=== PATIENT | male | born 1965 | race Caucasian/White ===

== ENCOUNTER 2017-11-17 17:37 | Emergency (ER) | payer MEDICAID ==
--- NOTE | 2017-11-17 17:51 | ER Report ---
History and Physical Time Seen By MD: 17:48 Hx. of Stated Complaint: pt presents with hxof pancreatitis, has been vomiting since last night, with pain luq HPI/ROS CHIEF COMPLAINT: Nausea, vomiting and diarrhea HISTORY OF PRESENT ILLNESS: This is a 52-year-old male presents to the emergency department with his son for nausea, vomiting and diarrhea. Patient states that he has a known history of pancreatitis non-alcoholic, was last seen and evaluated in [place], treated and cleared to "take a bus ride to [place]". Idris walker is now living with his son in [place]. Patient states that he woke up today with a sudden onset of nausea and vomiting and diarrhea. Patient states this is the typical course for his pancreatitis. Patient denies fevers or chills, no rashes, no headaches no chest pain or shortness of breath. REVIEW OF SYSTEMS: Constitutional: No fever, no chills. Eyes: No discharge. ENT: No sore throat. Cardiovascular: No chest pain, no palpitations. Respiratory: No cough, no shortness of breath. Gastrointestinal: As above. Genitourinary: No hematuria. Musculoskeletal: No back pain. Skin: No rashes. Neurological: No headache. Allergies: Coded Allergies: No Known Drug Allergies (Unverified , 11/17/17) Home Meds Active Scripts Promethazine Hcl (PROMETHAZINE HCL) 25 Mg Tablet, 25 MG PO Q8H, #12 TAB 0 Refills Prov:PHILLIP GUADARRAMAP- 11/17/17 Ondansetron (ZOFRAN ODT) 4 Mg Tab.rapdis, 4 MG PO Q6H PRN for NAUSEA/VOMITING, # 20 TAB.CINDY 0 Refills Prov:PHILLIP GUADARRAMA [facility]- 11/17/17 Hydrocodone Bit/Acetaminophen (HYDROCODON-ACETAMINOPHEN 5-325) 1 Each Tablet, 1 EACH PO Q4-6H PRN for PAIN, #8 TAB Prov:PHILLIP GUADARRAMA [facility]- 11/17/17 Reported Medications Polyethylene Glycol 3350 (MIRALAX) 17 Gm Powd.pack, 17 GM PO, PKT 11/17/17 Docusate Sodium (COLACE) 100 Mg Capsule, 100 MG PO, CAPSULE 11/17/17 Amlodipine Besylate (AMLODIPINE BESYLATE) 10 Mg Tablet, 1 TAB PO QDAY, TAB 11/17/17 Clonidine Hcl (CLONIDINE HCL) 0.1 Mg Tablet, 0.1 MG PO QDAY, TAB 11/17/17 Acetaminophen (Acetaminophen) 325 Mg Capsule 11/17/17 Tamsulosin Hcl (TAMSULOSIN HCL) 0.4 Mg Cap.er.24h, 0.4 MG PO, CAP 11/17/17 Insulin Aspart (NOVOLOG) 100 Unit/1 Ml Cartridge, 100 UNIT SQ 11/17/17 Past Medical/Surgical History The patient has a past medical and surgical history of malnutrition, depression, uncontrolled type II diabetes, nicotine dependence, essential hypertension, diabetic polyneuropathy, BPH, cannabis dependence, opiate dependence, insomnia, pancreatitis, cataracts, cellulitis and abscess of the left foot and toe, depression syncope Reviewed Nurses Notes: Yes Constitutional Vital Sign - Last 24 Hours 11/17/17 11/17/17 11/17/17 11/17/17 17:42 17:44 18:24 18:37 Temp 97.8 Pulse 90 82 Resp 22 B/P (MAP) 238/145 (176) 238/145 227/138 (167) Pulse Ox 99 90 O2 Delivery Room Air 11/17/17 11/17/17 11/17/17 11/17/17 18:42 18:46 19:00 19:12 Pulse 82 92 B/P (MAP) 174/103 (126) 193/116 (141) Pulse Ox 92 92 11/17/17 11/17/17 11/17/17 11/17/17 19:17 19:30 19:47 20:00 Pulse 92 88 B/P (MAP) 185/116 (139) 189/129 (149) Pulse Ox 92 93 11/17/17 11/17/17 11/17/17 20:17 20:30 20:41 Pulse 87 88 Resp 16 B/P (MAP) 171/115 (133) 178/99 (125) Pulse Ox 95 92 O2 Delivery Room Air Physical Exam General Appearance: The patient is alert, has no immediate need for airway protection and no signs of toxicity. Eyes: Pupils equal and round no pallor or injection. ENT, Mouth: Mucous membranes are dry, poor dentition and multiple dental caries. Respiratory: There are no retractions, lungs are clear to auscultation. Cardiovascular: Regular rate and rhythm, no murmurs, clicks or rubs. Gastrointestinal: Abdomen is soft with diffuse tenderness throughout, with increased tenderness to the epigastrium. No masses, bowel sounds normal. No heaves, pulsations or abdominal bruits. Neurological: Alert and oriented 4. Moving all extremities. Following all commands. No focal neuro deficits. Skin: Warm and dry, no rashes. Musculoskeletal: Neck is supple non tender. Extremities are nontender, nonswollen and have full range of motion. DIFFERENTIAL DIAGNOSIS: After history and physical exam differential diagnosis was considered for abdominal pain including but not limited to appendicitis, cholecystitis, pancreatitis, gastritis and urinary tract infection. Medical Decision Making Data Points Result Diagram: 11/17/17 1754 11/17/17 1754 Laboratory Hematology Test 11/17/17 17:54 11/17/17 18:19 Red Blood Count 4.78 M/uL (4.00-5.60) Mean Corpuscular Volume 86.9 fL (80.0-96.0) Mean Corpuscular Hemoglobin 30.5 pg (26.0-33.0) Mean Corpuscular Hemoglobin Concent 35.1 g/dL (32.0-36.0) Red Cell Distribution Width 13.7 % (11.5-14.5) Mean Platelet Volume 7.8 fL (7.2-11.1) Neutrophils (%) (Auto) 78.5 % (39.4-72.5) Lymphocytes (%) (Auto) 16.0 % (17.6-49.6) Monocytes (%) (Auto) 3.9 % (4.1-12.4) Eosinophils (%) (Auto) 0.4 % (0.4-6.7) Basophils (%) (Auto) 1.2 % (0.3-1.4) Nucleated RBC Relative Count (auto) 0.1 /100WBC Neutrophils # (Auto) 6.2 K/uL (2.0-7.4) Lymphocytes # (Auto) 1.3 K/uL (1.3-3.6) Monocytes # (Auto) 0.3 K/uL (0.3-1.0) Eosinophils # (Auto) 0.0 K/uL (0.0-0.5) Basophils # (Auto) 0.1 K/uL (0.0-0.1) Nucleated RBC Absolute Count (auto) 0.00 K/uL Sodium Level 136 mmol/L (137-145) Potassium Level 4.3 mmol/L (3.5-5.0) Chloride Level 99 mmol/L (98-107) Carbon Dioxide Level 23 mmol/L (22-30) Blood Urea Nitrogen 17 mg/dl (9-21) Creatinine 0.70 mg/dl (0.66-1.25) Glomerular Filtration Rate Calc > 60.0 Random Glucose 392 mg/dl (75-110) Calcium Level 9.5 mg/dl (8.4-10.2) Total Bilirubin 0.8 mg/dl (0.2-1.3) Aspartate Amino Transf (AST/SGOT) 27 U/L (0-35) Alanine Aminotransferase (ALT/SGPT) 23 U/L (0-56) Alkaline Phosphatase 115 U/L (0-126) Total Protein 8.8 g/dl (6.3-8.2) Albumin 4.5 g/dl (3.5-5.0) Lipase 306 U/L (23-300) Urine Color Straw Urine Clarity Clear Urine pH 6.0 pH (4.8-9.5) Urine Specific [place] 1.021 Urine Protein 500 mg/dL (NEGATIVE) Urine Glucose (UA) 500 mg/dL (NEGATIVE) Urine Ketones 20 mg/dL (NEGATIVE) Urine Blood Small (NEGATIVE) Urine Nitrite Negative (NEGATIVE) Urine Bilirubin Negative (NEGATIVE) Urine Urobilinogen Negative mg/dL (0.2-1.9) Urine Leukocyte Esterase Negative (NEGATIVE) Urine RBC 11 /HPF (0-2/HPF) Urine WBC 1 /HPF (0-5/HPF) Urine Squamous Epithelial Cells None /LPF (</=FEW) Urine Bacteria Negative /HPF (NONE-FEW) Urine Hyaline Casts Few /LPF (NONE-FEW) Urine Mucus None /HPF (NONE-FEW) Chemistry Test 11/17/17 17:54 11/17/17 18:19 White Blood Count 7.9 k/uL (4.5-11.0) Red Blood Count 4.78 M/uL (4.00-5.60) Hemoglobin 14.6 g/dL (14.0-18.0) Hematocrit 41.6 % (42.0-52.0) Mean Corpuscular Volume 86.9 fL (80.0-96.0) Mean Corpuscular Hemoglobin 30.5 pg (26.0-33.0) Mean Corpuscular Hemoglobin Concent 35.1 g/dL (32.0-36.0) Red Cell Distribution Width 13.7 % (11.5-14.5) Platelet Count 341 K/uL (150-450) Mean Platelet Volume 7.8 fL (7.2-11.1) Neutrophils (%) (Auto) 78.5 % (39.4-72.5) Lymphocytes (%) (Auto) 16.0 % (17.6-49.6) Monocytes (%) (Auto) 3.9 % (4.1-12.4) Eosinophils (%) (Auto) 0.4 % (0.4-6.7) Basophils (%) (Auto) 1.2 % (0.3-1.4) Nucleated RBC Relative Count (auto) 0.1 /100WBC Neutrophils # (Auto) 6.2 K/uL (2.0-7.4) Lymphocytes # (Auto) 1.3 K/uL (1.3-3.6) Monocytes # (Auto) 0.3 K/uL (0.3-1.0) Eosinophils # (Auto) 0.0 K/uL (0.0-0.5) Basophils # (Auto) 0.1 K/uL (0.0-0.1) Nucleated RBC Absolute Count (auto) 0.00 K/uL Glomerular Filtration Rate Calc > 60.0 Calcium Level 9.5 mg/dl (8.4-10.2) Total Bilirubin 0.8 mg/dl (0.2-1.3) Aspartate Amino Transf (AST/SGOT) 27 U/L (0-35) Alanine Aminotransferase (ALT/SGPT) 23 U/L (0-56) Alkaline Phosphatase 115 U/L (0-126) Total Protein 8.8 g/dl (6.3-8.2) Albumin 4.5 g/dl (3.5-5.0) Lipase 306 U/L (23-300) Urine Color Straw Urine Clarity Clear Urine pH 6.0 pH (4.8-9.5) Urine Specific [place] 1.021 Urine Protein 500 mg/dL (NEGATIVE) Urine Glucose (UA) 500 mg/dL (NEGATIVE) Urine Ketones 20 mg/dL (NEGATIVE) Urine Blood Small (NEGATIVE) Urine Nitrite Negative (NEGATIVE) Urine Bilirubin Negative (NEGATIVE) Urine Urobilinogen Negative mg/dL (0.2-1.9) Urine Leukocyte Esterase Negative (NEGATIVE) Urine RBC 11 /HPF (0-2/HPF) Urine WBC 1 /HPF (0-5/HPF) Urine Squamous Epithelial Cells None /LPF (</=FEW) Urine Bacteria Negative /HPF (NONE-FEW) Urine Hyaline Casts Few /LPF (NONE-FEW) Urine Mucus None /HPF (NONE-FEW) Urinalysis Test 11/17/17 18:19 Urine Color Straw Urine Clarity Clear Urine pH 6.0 pH (4.8-9.5) Urine Specific [place] 1.021 Urine Protein 500 mg/dL (NEGATIVE) Urine Glucose (UA) 500 mg/dL (NEGATIVE) Urine Ketones 20 mg/dL (NEGATIVE) Urine Blood Small (NEGATIVE) Urine Nitrite Negative (NEGATIVE) Urine Bilirubin Negative (NEGATIVE) Urine Urobilinogen Negative mg/dL (0.2-1.9) Urine Leukocyte Esterase Negative (NEGATIVE) Urine RBC 11 /HPF (0-2/HPF) Urine WBC 1 /HPF (0-5/HPF) Urine Squamous Epithelial Cells None /LPF (</=FEW) Urine Bacteria Negative /HPF (NONE-FEW) Urine Hyaline Casts Few /LPF (NONE-FEW) Urine Mucus None /HPF (NONE-FEW) EKG/Imaging EKG Interpretation 12 lead EKG: Time of EKG 1808. Rhythm: Normal sinus rhythm, ventricular rate 83 BPM. Council: normal QRS: normal ST segments: No ST depression or elevation identified. ED Course/Re-evaluation Clinical Indication for ER IV: Hydration, IV Access ED Course The patient was admitted to room. A history physical obtained. Differential diagnoses were considered. An IV was started. A CBC, CMP and lipase were obtained. CBC unremarkable. Chemistry showing blood glucose 392. Lipase 306. UA showing protein, glucose, ketones and blood. According to the patient's past laboratory studies this is a fairly consistent pattern with his poor nutrition and poor health.8 milligrams IV as Zofran, 50 g IV fentanyl, just prior to arrival O.5 milligrams IV Phenergan. Patient was also sent home with take home pack for Zofran, Phenergan and hydrocodone. Patient states he is feeling better after the medications pain has subsided. I did review the laboratory studies with the patient. Patient does have a known history of pancreatitis. I did consult with Dr. Murillo the hospitalist on-call he was willing to admit the p atient if the patient felt that he needed an admission but felt that if he could manage his recurrent pancreatitis at home and this may be a better option. I discussed this with the patient, the patient was willing to trial managing the pancreatitis at home with his son who is willing to help. The patient was given a prescription for Phenergan, Zofran and Lortab as well. Patient was instructed to try sips of fluids for the next 36 hours slowly progress into a clear liquid diet for the next 24-48 hours at which time if he is feeling better then he can slowly progress into a regular diet. Patient was in agreement with his clinic care. Patient has a long history of non-alcoholic pancreatitis. The patient and son were in agreement with this plan of care and discharged home. Decision to Disposition Date: Nov 17, 2017 Decision to Disposition Time: 20:07 Depart Departure Latest Vital Signs Vital Signs Date Time Temp Pulse Resp B/P (MAP) Pulse Ox O2 Delivery O2 Flow Rate FiO2 11/17/17 20:41 88 16 178/99 (125) 92 Room Air 11/17/17 17:44 97.8 Impression: Primary Impression: Pancreatitis Condition: Improved Disposition: HOME OR SELF-CARE New Scripts Promethazine Hcl (PROMETHAZINE HCL) 25 Mg Tablet 25 MG PO Q8H, #12 TAB 0 Refills Prov: PHILLIP GUADARRAMA RESIDENTIAL APPLIANCE REPAIR TECHNICIAN-BC 11/17/17 Ondansetron (ZOFRAN ODT) 4 Mg Tab.rapdis 4 MG PO Q6H PRN for NAUSEA/VOMITING, #20 TAB.CINDY 0 Refills Prov: PHILLIP GUADARRAMA [employer]IDENTIAL [employer]PLIANCE REPAIR TECHNICIAN-BC 11/17/17 Hydrocodone Bit/Acetaminophen (HYDROCODON-ACETAMINOPHEN 5-325) 1 Each Tablet 1 EACH PO Q4-6H PRN for PAIN, #8 TAB Prov: PHILLIP GUADARRAMA RESIDENTIAL APPLIANCE REPAIR TECHNICIAN-BC 11/17/17 Patient Instructions: Pancreatitis (ED) Additional Instructions: Start with sips of fluids for the next 3-6 hours then slowly progress if tolerating well. Then a clear liquid diet for the next 24-48 hours and progress into a regular diet slowly. Establish with your new primary care provider within one week for reevaluation. Take the Zofran, Phenergan and Lortab as needed for nausea, vomiting and pain. Return to the ED for any other concerns or worsening symptoms. Problem Qualifiers Primary Impression: Pancreatitis Chronicity: chronic Pancreatitis type: unspecified pancreatitis type Qualified Codes: K86.1 - Other chronic pancreatitis PHILLIP GUADARRAMA RESIDENTIAL APPLIANCE REPAIR TECHNICIAN-BC Nov 17, 2017 17:51
[2017-11-17] MEDS ORDERED: NS(*) 0.9% 1000 ML BAG 1,000 ML IV ONE (18:01)
[2017-11-17] MEDS ORDERED: fentaNYL CITR 100 MCG/2 ML AMP IVP ONE (18:05)
[2017-11-17] MEDS ORDERED: ONDANSETRON 4 MG/2 ML VIAL IVP ONE (18:05)
[2017-11-17 18:10] LABS: PLATELET COUNT, AUTOMATED 341 K/uL (150-450)
[2017-11-17] MEDS ORDERED: CLON-327 PO (18:18)
[2017-11-17] MEDS ORDERED: TAMS0.4C70 PO (18:18)
[2017-11-17] MEDS ORDERED: INSU100C14 SQ (18:18)
[2017-11-17] MEDS ORDERED: DOCU-416 PO (18:18)
[2017-11-17] MEDS ORDERED: ACET325C (18:18)
[2017-11-17] MEDS ORDERED: AMLO-99 PO (18:18)
[2017-11-17] MEDS ORDERED: POLY17PO25 PO (18:18)
--- NOTE | 2017-11-17 19:01 | EKG ---
FACILITY: [facility] [place] PATIENT NAME: BETY CHINCHILLA : [id number] MR: [id number] V: [id number] EXAM DATE: ORDERING PHYSICIAN: PHILLIP GUADARRAMA TECHNOLOGIST: [place] Test Reason : WEAK Blood Pressure : / mmHG Vent. Rate : 083 BPM Atrial Rate : 083 BPM P-R Int : 158 ms QRS Dur : 082 ms QT Int : 366 ms P-R-T Axes : 067 007 063 degrees QTc Int : 430 ms Normal sinus rhythm Normal ECG No previous ECGs available Confirmed by GISELA MAO ([id number]) on 11/18/2017 6:43:52 AM Referred By: PIHLLIP Confirmed By:GISELA MAO
[2017-11-17] MEDS ORDERED: PROMETHAZINE 25 MG/ML 1 ML AMP IVP ONE (19:55)
[2017-11-17] MEDS ORDERED: ONDANSETRON 4 MG ODT TH SL ONE (20:00)
[2017-11-17] MEDS ORDERED: PROMETHAZINE HCL 25 MG TAB TH 2 TAB/BOTTLE PO ONE (20:00)
[2017-11-17] MEDS ORDERED: ACET/HYDROC 5/325MG TH ER ONLY 2 TAB/BOTTLE PO ONE (20:00)
[2017-11-17] MEDS ORDERED: ONDA4TAB PO (20:11)
[2017-11-17] MEDS ORDERED: PROM-110 PO (20:11)
[2017-11-17] MEDS ORDERED: HYDR-385 PO (20:11)
[2017-11-17 20:41] VITALS: BP 178/99
== END 2017-11-17 20:46 | disposition home or self-care (01) ==
LOC: ER 19:54
DX: K86.1 Other chronic pancreatitis (principal)
CPT/HCPCS: 81001; 83690; 85025; 93005; 96361; 96374; 96375; 99284; J2405; J2550; J3010; J7030; S0119; 82040; 82247; 82310; 82374; 82435; 82565; 82947; 84075; 84132; 84155; 84295; 84450; 84460; 84520

== ENCOUNTER 2017-11-24 20:50 | Emergency (ER) | payer MEDICAID ==
[~2017-11-24 20:50] MED LIST: ACET325C; AMLO-99 PO; CLON-327 PO; DOCU-416 PO; HYDR-385 PO; INSU100C14 SQ; ONDA4TAB PO; POLY17PO25 PO; PROM-110 PO; TAMS0.4C70 PO
--- NOTE | 2017-11-24 20:53 | ER Report ---
History and Physical Time Seen By MD: 20:53 HPI/ROS CHIEF COMPLAINT: Syncope HISTORY OF PRESENT ILLNESS: 52-year-old male got up to go to the bathroom, had a syncopal episode in the bathroom. Patient fell striking his nose and face. He is complaining of neck pain. EMS put him in a cervical collar. Patient was seen here one week ago with recurrence of his pancreatitis. Patient just moved here to live with his son. Tonight. Patient got up to go to the bathroom and had a syncopal episode. He reports no diarrhea. He denies dysuria. He denies chest pain or shortness of breath. REVIEW OF SYSTEMS: Respiratory: No cough, no dyspnea. Cardiovascular: No chest pain, no palpitations. Gastrointestinal: As above Musculoskeletal: No back pain. Allergies: Coded Allergies: No Known Drug Allergies (Unverified , 11/24/17) Home Meds Active Scripts Promethazine Hcl (PROMETHAZINE HCL) 25 Mg Tablet, 25 MG PO Q8H, #12 TAB 0 Refills Prov:PHILLIP GUADARRAMAP-BC 11/17/17 Hydrocodone Bit/Acetaminophen (HYDROCODON-ACETAMINOPHEN 5-325) 1 Each Tablet, 1 EACH PO Q4-6H PRN for PAIN, #8 TAB Prov:PHILLIP GUADARRAMAP-BC 11/17/17 Discontinued Reported Medications Polyethylene Glycol 3350 (MIRALAX) 17 Gm Powd.pack, 17 GM PO, PKT 11/17/17 Docusate Sodium (COLACE) 100 Mg Capsule, 100 MG PO, CAPSULE 11/17/17 Amlodipine Besylate (AMLODIPINE BESYLATE) 10 Mg Tablet, 1 TAB PO QDAY, TAB 11/17/17 Clonidine Hcl (CLONIDINE HCL) 0.1 Mg Tablet, 0.1 MG PO QDAY, TAB 11/17/17 Acetaminophen (Acetaminophen) 325 Mg Capsule 11/17/17 Tamsulosin Hcl (TAMSULOSIN HCL) 0.4 Mg Cap.er.24h, 0.4 MG PO, CAP 11/17/17 Insulin Aspart (NOVOLOG) 100 Unit/1 Ml Cartridge, 100 UNIT SQ 11/17/17 Discontinued Scripts Ondansetron (ZOFRAN ODT) 4 Mg Tab.rapdis, 4 MG PO Q6H PRN for NAUSEA/VOMITING, #20 TAB.CINDY 0 Refills Prov:PHILLIP GUADARRAMA [employer]-BC 11/17/17 Reviewed Nurses Notes: Yes Old Medical Records Reviewed: Yes Hx Substance Use Disorder: No Hx Alcohol Use: No Constitutional Vital Sign - Last 24 Hours 11/24/17 11/24/17 11/24/17 11/24/17 20:53 20:53 21:05 21:20 Temp 98.6 Pulse 104 101 102 Resp 17 14 12 B/P (MAP) 180/114 180/114 (136) Pulse Ox 97 96 97 O2 Delivery Room Air 11/24/17 11/24/17 11/24/17 11/24/17 21:38 21:50 22:05 22:20 Pulse 100 103 101 B/P (MAP) 187/122 (143) Pulse Ox 96 97 96 11/24/17 11/24/17 11/24/17 11/24/17 22:35 22:40 22:55 23:06 Pulse 100 100 93 B/P (MAP) 143/103 (116) Pulse Ox 96 95 96 11/24/17 11/24/17 11/24/17 11/24/17 23:10 23:15 23:30 23:45 Pulse 91 99 97 96 Pulse Ox 95 97 96 95 11/25/17 11/25/17 11/25/17 11/25/17 00:00 00:21 00:30 00:45 Pulse 96 100 96 B/P (MAP) 176/110 (132) Pulse Ox 96 95 95 11/25/17 11/25/17 11/25/17 11/25/17 01:00 01:05 01:20 01:25 Pulse 96 99 97 B/P (MAP) 118/71 (87) Pulse Ox 93 93 96 96 11/25/17 11/25/17 11/25/17 11/25/17 01:40 01:55 02:00 02:13 Pulse 98 101 ??? B/P (MAP) ???/??? (1665) 189/110 (136) 11/25/17 11/25/17 11/25/17 11/25/17 02:30 03:00 03:30 03:40 Pulse 96 98 91 B/P (MAP) 165/106 (125) 137/94 (108) Pulse Ox 95 96 94 9/211/25/17 11/25/17 11/25/17 04:00 04:05 04:09 04:30 Pulse 101 ??? B/P (MAP) 178/120 (139) 198/123 (148) 166/100 (122) 176/103 (127) Pulse Ox 97 11/25/17 11/25/17 11/25/17 05:00 05:30 06:00 Pulse ??? 93 ??? B/P (MAP) 117/76 (90) 139/89 (106) 167/105 (125) Pulse Ox 94 Physical Exam General Appearance: The patient is alert, has no immediate need for airway protection and no current signs of toxicity./Pale appearing, skin warm and dry. Vital signs stable, afebrile, patient was notably hypotensive for EMS after vasovagal syncope HEENT: Pupils equal and round no injection. Oropharynx with dry mucous membranes, no erythema, TMs normal, there is a laceration over the bridge of the nose. Respiratory: Chest is non tender, lungs are clear to auscultation. Cardiac: regular rate and rhythm Gastrointestinal: Abdomen is soft and non tender, no masses, bowel sounds normal. Musculoskeletal: Neck: Neck is supple and non tender. Extremities have full range of motion and are non tender. Skin: No rashes or lesions. Neuro: Alert and oriented 3, cranial nerves II through XII intact motor 5/5 all groups, sensory intact to light touch 4, cerebellum grossly intact DIFFERENTIAL DIAGNOSIS: After history and physical exam differential diagnosis was considered for syncope including but not limited to vasovagal syncope, arrhythmia, dehydration, and blood loss. Additionally,abdominal pain including but not limited to appendicitis, cholecystitis, gastritis and urinary tract infection. Medical Decision Making Data Points Result Diagram: 11/24/17204911/24/172049 Laboratory Hematology Test 11/24/17 20:50 11/25/17 00:07 11/25/17 04:12 Red Blood Count 5.07 M/uL (4.00-5.60) Mean Corpuscular Volume 86.6 fL (80.0-96.0) Mean Corpuscular Hemoglobin 30.0 pg (26.0-33.0) Mean Corpuscular Hemoglobin Concent 34.6 g/dL (32.0-36.0) Red Cell Distribution Width 13.6 % (11.5-14.5) Mean Platelet Volume 8.3 fL (7.2-11.1) Neutrophils (%) (Auto) 52.7 % (39.4-72.5) Lymphocytes (%) (Auto) 35.1 % (17.6-49.6) Monocytes (%) (Auto) 10.8 % (4.1-12.4) Eosinophils (%) (Auto) 0.7 % (0.4-6.7) Basophils (%) (Auto) 0.7 % (0.3-1.4) Nucleated RBC Relative Count (auto) 0.0 /100WBC Neutrophils # (Auto) 4.4 K/uL (2.0-7.4) Lymphocytes # (Auto) 2.9 K/uL (1.3-3.6) Monocytes # (Auto) 0.9 K/uL (0.3-1.0) Eosinophils # (Auto) 0.1 K/uL (0.0-0.5) Basophils # (Auto) 0.1 K/uL (0.0-0.1) Nucleated RBC Absolute Count (auto) 0.00 K/uL Sodium Level 131 mmol/L (137-145) Potassium Level 4.2 mmol/L (3.5-5.0) Chloride Level 89 mmol/L (98-107) Carbon Dioxide Level 21 mmol/L (22-30) Blood Urea Nitrogen 37 mg/dl (9-21) Creatinine 1.00 mg/dl (0.66-1.25) Glomerular Filtration Rate Calc > 60.0 Random Glucose 278 mg/dl (75-110) Lactate 2.0 mmol/L (0.7-2.1) Calcium Level 9.0 mg/dl (8.4-10.2) Total Bilirubin 0.7 mg/dl (0.2-1.3) Aspartate Amino Transf (AST/SGOT) 15 U/L (0-35) Alanine Aminotransferase (ALT/SGPT) 14 U/L (0-56) Alkaline Phosphatase 67 U/L (0-126) Total Protein 6.9 g/dl (6.3-8.2) Albumin 3.6 g/dl (3.5-5.0) Amylase Level 56 U/L (0-110) Lipase 119 U/L (23-300) Serum Alcohol < 10 mg/dl Troponin I 0.031 ng/ml Urine Color Yellow Urine Clarity Clear Urine pH 5.0 pH (4.8-9.5) Urine Specific [place] 1.020 Urine Protein 500 mg/dL (NEGATIVE) Urine Glucose (UA) 500 mg/dL (NEGATIVE) Urine Ketones 80 mg/dL (NEGATIVE) Urine Blood Moderate (NEGATIVE) Urine Nitrite Negative (NEGATIVE) Urine Bilirubin Negative (NEGATIVE) Urine Urobilinogen Negative mg/dL (0.2-1.9) Urine Leukocyte Esterase Negative (NEGATIVE) Urine RBC 1 /HPF (0-2/HPF) Urine WBC <1 /HPF (0-5/HPF) Urine Squamous Epithelial Cells None /LPF (</=FEW) Urine Transitional Epithelial Cells Few /LPF (NONE-FEW) Urine Bacteria Negative /HPF (NONE-FEW) Urine Hyaline Casts Few /LPF (NONE-FEW) Urine Mucus None /HPF (NONE-FEW) Chemistry Test 11/24/17 20:50 11/25/17 00:07 11/25/17 04:12 White Blood Count 8.3 k/uL (4.5-11.0) Red Blood Count 5.07 M/uL (4.00-5.60) Hemoglobin 15.2 g/dL (14.0-18.0) Hematocrit 43.9 % (42.0-52.0) Mean Corpuscular Volume 86.6 fL (80.0-96.0) Mean Corpuscular Hemoglobin 30.0 pg (26.0-33.0) Mean Corpuscular Hemoglobin Concent 34.6 g/dL (32.0-36.0) Red Cell Distribution Width 13.6 % (11.5-14.5) Platelet Count 384 K/uL (150-450) Mean Platelet Volume 8.3 fL (7.2-11.1) Neutrophils (%) (Auto) 52.7 % (39.4-72.5) Lymphocytes (%) (Auto) 35.1 % (17.6-49.6) Monocytes (%) (Auto) 10.8 % (4.1-12.4) Eosinophils (%) (Auto) 0.7 % (0.4-6.7) Basophils (%) (Auto) 0.7 % (0.3-1.4) Nucleated RBC Relative Count (auto) 0.0 /100WBC Neutrophils # (Auto) 4.4 K/uL (2.0-7.4) Lymphocytes # (Auto) 2.9 K/uL (1.3-3.6) Monocytes # (Auto) 0.9 K/uL (0.3-1.0) Eosinophils # (Auto) 0.1 K/uL (0.0-0.5) Basophils # (Auto) 0.1 K/uL (0.0-0.1) Nucleated RBC Absolute Count (auto) 0.00 K/uL Glomerular Filtration Rate Calc > 60.0 Lactate 2.0 mmol/L (0.7-2.1) Calcium Level 9.0 mg/dl (8.4-10.2) Total Bilirubin 0.7 mg/dl (0.2-1.3) Aspartate Amino Transf (AST/SGOT) 15 U/L (0-35) Alanine Aminotransferase (ALT/SGPT) 14 U/L (0-56) Alkaline Phosphatase 67 U/L (0-126) Total Protein 6.9 g/dl (6.3-8.2) Albumin 3.6 g/dl (3.5-5.0) Amylase Level 56 U/L (0-110) Lipase 119 U/L (23-300) Serum Alcohol < 10 mg/dl Troponin I 0.031 ng/ml Urine Color Yellow Urine Clarity Clear Urine pH 5.0 pH (4.8-9.5) Urine Specific [place] 1.020 Urine Protein 500 mg/dL (NEGATIVE) Urine Glucose (UA) 500 mg/dL (NEGATIVE) Urine Ketones 80 mg/dL (NEGATIVE) Urine Blood Moderate (NEGATIVE) Urine Nitrite Negative (NEGATIVE) Urine Bilirubin Negative (NEGATIVE) Urine Urobilinogen Negative mg/dL (0.2-1.9) Urine Leukocyte Esterase Negative (NEGATIVE) Urine RBC 1 /HPF (0-2/HPF) Urine WBC <1 /HPF (0-5/HPF) Urine Squamous Epithelial Cells None /LPF (</=FEW) Urine Transitional Epithelial Cells Few /LPF (NONE-FEW) Urine Bacteria Negative /HPF (NONE-FEW) Urine Hyaline Casts Few /LPF (NONE-FEW) Urine Mucus None /HPF (NONE-FEW) Toxicology Test 11/24/17 20:50 Serum Alcohol < 10 mg/dl Urinalysis Test 11/25/17 04:12 Urine Color Yellow Urine Clarity Clear Urine pH 5.0 pH (4.8-9.5) Urine Specific [place] 1.020 Urine Protein 500 mg/dL (NEGATIVE) Urine Glucose (UA) 500 mg/dL (NEGATIVE) Urine Ketones 80 mg/dL (NEGATIVE) Urine Blood Moderate (NEGATIVE) Urine Nitrite Negative (NEGATIVE) Urine Bilirubin Negative (NEGATIVE) Urine Urobilinogen Negative mg/dL (0.2-1.9) Urine Leukocyte Esterase Negative (NEGATIVE) Urine RBC 1 /HPF (0-2/HPF) Urine WBC <1 /HPF (0-5/HPF) Urine Squamous Epithelial Cells None /LPF (</=FEW) Urine Transitional Epithelial Cells Few /LPF (NONE-FEW) Urine Bacteria Negative /HPF (NONE-FEW) Urine Hyaline Casts Few /LPF (NONE-FEW) Urine Mucus None /HPF (NONE-FEW) EKG/Imaging EKG Interpretation 12 lead EK Rhythm: normal sinus rhythm at a rate of 100 bpm [place]: normal QRS: Old anterior Q waves ST segments: normal, no acute ischemic ST or T-wave changes Imaging Results: CT scan of the head without contrast was obtained. The results of the study are HEAD W/O CONTRAST EXAMINATION: CT head/brain without contrast HISTORY: Fall loss of consciousness TECHNIQUE: Contiguous axial images were obtained from the skull base to the vertex without intravenous contrast. One of the following dose optimization techniques was utilized in the performance of this exam: Automated exposure control; adjustment of the mA and/or kV according to the patient's size; or use of an iterative reconstruction technique. Specific details can be referenced in the facility's radiology CT exam operational policy. COMPARISON STUDIES: None FINDINGS: Ventricles/sulci/fissures: Negative Masses/hemorrhage/midline shift: Negative White matter: Negative Feng-white differentiation: Negative Extra-axial spaces: Negative Dural venous sinuses/arterial structures: Negative Skull base/calvarium: Nasal bone fracture Visualized mastoid air cells/paranasal sinuses: Negative IMPRESSION: 1. Negative CT scan of the head for acute intracranial pathology. 2. Nasal bone fracture noted. The study was read by the radiologist. I viewed the images myself on the PACS system. Results: CT scan of the cervical spine without contrast was obtained. The results of the study are no acute findings. The study was read by the radiologist. I viewed the images myself on the PACS system. Results: CT scan of the abdomen and pelvis with IV contrast was obtained. The results of the study are Computed tomograpy abdomen and pelvis with IV contrast Indication: Abdominal pain. Weight loss. Comparison: None available. . Technique: Transaxial computed tomography images were obtained through the abdomen and pelvis following the injection of nonionic iodinated intravenous contrast. Reformatted coronal and sagittal images were also obtained. One of the following dose optimization techniques was utilized in the performance of this exam: Automated exposure control; adjustment of the mA and/or kV according to the patient's size; or use of an iterative reconstruction technique. Specific details can be referenced in the facility's radiology CT exam operational policy. Contrast: 75 ml of Isovue-370 IV contrast. Findings: Lower lung bowen: Limited views lower lung field are unremarkable. There is circumferential thickening of the distal esophagus. This is not specific and could reflect esophagitis. Endoscopy could be performed for further assessment to exclude a mucosal abnormality. Liver: There is mild diffuse fatty liver. No focal abnormality is identified. Biliary: Gallbladder appears unremarkable as well as the intra and extra hepatic biliary system. Pancreas: Normal appearance. Spleen: Normal appearance. Adrenal glands: Unremarkable. Kidneys / retroperitoneum: No evidence of nephrolithiasis or hydronephrosis Bowel / peritoneum / mesenteries: There is apparent wall thickening of the descending colon which may reflect underdistention. No surrounding inflammatory stranding is seen. Colitis cannot be completely excluded but is felt to be less likely. Appendix is normal. Small bowel loops are normal in caliber. Lymph node assessment: No pathologic adenopathy identified. Pelvic structures: Bladder is mildly distended. Prostate gland is moderately enlarged. Vessels: Moderately diffuse atherosclerotic calcifications seen throughout a nonaneurysmal abdominal aorta and branches. Infrarenal aorta is mildly ectatic measuring up to 2.1 cm in greatest dimension. Musculoskeletal / Body wall: No compression fractures. Mild hip joint osteoarthritis is seen. IMPRESSION: 1. Mild diffuse fatty liver. 2. Apparent wall and mucosal thickening of the descending colon which may r eflect under distention but a colitis cannot be excluded. No appreciable surrounding inflammatory changes are seen which makes a left-sided colitis less likely. Correlate clinically. 3. Atherosclerosis. 4. Circumferential thickening of the distal esophagus which can reflect esophagitis. If indicated, consider direct visualization for further evaluation and to exclude a mucosal abnormality. 5. Prostatic enlargement The study was read by the radiologist. I viewed the images myself on the PACS system. ED Course/Re-evaluation Clinical Indication for ER IV: Hydration, IV Access ED Course Patient was admitted to an examination room. H&P was done. The differential diagnoses was considered. Patient presents by EMS with vasovagal syncope. He has significant nose injury. There is a laceration does not gap open. There is tenderness to the nose bridge. A head CT and a cervical spine CT are unremarkable except for nasal bone fracture. Patient's other diagnostic evaluation is unremarkable for an obvious etiology of his syncope. He likely had vasovagal syncope. Patient was treated a week ago for abdominal pain and is diagnosed with mild pancreatitis. He was discharged home on Phenergan and Percocet. Patient also had an [place] pelvic CT, which didn't show any acute pathology. There is some duodenitis and possibly colitis. Patient's advised to follow-up with internal medicine on Sunday for help with his social situation. He was given Dr. Bobby Kebede's information. Procedure: Laceration repair. Verbal consent was obtained from the patient. The 2.0 cm laceration on the [place] bridge was anesthetized in the usual fashion. The wound was scrubbed, draped and explored to its base with a gloved finger. There was an associated nasal bone fracturethe wound was repaired with Dermabond. The wound repair was simple. The procedure was performed by myself. Decision to Disposition Date: Nov 24, 2017 Decision to Disposition Time: 23:56 Depart Departure Latest Vital Signs Vital Signs Date Time Temp Pulse Resp B/P (MAP) Pulse Ox O2 Delivery O2 Flow Rate FiO2 11/25/17 06:00 ??? 167/105 (125) 11/25/17 05:30 94 11/24/17 21:20 12 11/24/17 20:53 98.6 Room Air Impression: Primary Impression: Syncope Additional Impressions: Laceration of nose Nasal bone fracture History of pancreatitis Dehydration Condition: Improved Disposition: HOME OR SELF-CARE Referrals: SULMA MARIE MD, FARRUKH MD Patient Instructions: Nasal Fracture (ED), Skin Adhesive Care (ED), Syncope (ED) Additional Instructions: Follow-up with primary care early next week Dr Kebede's & Bobby's info provided Problem Qualifiers Primary Impression: Syncope Syncope type: vasovagal syncope Qualified Codes: R55 - Syncope and collapse Additional Impressions: Laceration of nose Encounter type: initial encounter Qualified Codes: S01.21XA - Laceration without foreign body of nose, initial encounter Nasal bone fracture Encounter type: initial encounter Fracture type: closed Qualified Codes: S02.2XXA - Fracture of nasal bones, initial encounter for closed fracture ROBBY BENAVIDEZ DO Nov 24, 2017 20:53
[2017-11-24] MEDS ORDERED: NS(*) 0.9% 1000 ML BAG 1,000 ML IV ONE (21:04)
[2017-11-24] MEDS ORDERED: EMS NS 0.9%(*) 1000 ML BAG 1,000 ML IV ONE (21:10)
[2017-11-24 21:14] LABS: PLATELET COUNT, AUTOMATED 384 K/uL (150-450)
--- NOTE | 2017-11-24 21:19 | EKG ---
FACILITY: [facility] PATIENT NAME: BETY CHINCHILLA : [id number] MR: [id number] V: [id number] EXAM DATE: ORDERING PHYSICIAN: ROBBY BENAVIDEZ TECHNOLOGIST: LILIA Hubbard Reason : Blood Pressure : / mmHG Vent. Rate : 100 BPM Atrial Rate : 100 BPM P-R Int : 182 ms QRS Dur : 068 ms QT Int : 360 ms P-R-T Axes : 074 013 -13 degrees QTc Int : 464 ms Normal sinus rhythm Septal infarct , age undetermined Abnormal ECG When compared with ECG of 17-NOV-2017 18:08, Nonspecific T wave abnormality now evident in Inferior leads Confirmed by GISELA MAO ([id number]) on 11/25/2017 6:28:36 AM Referred By: Confirmed By:GISELA MAO
--- NOTE | 2017-11-24 22:13 | RADIOLOGY IMAGING REPORT ---
FACILITY: [facility] PATIENT NAME: Aryan Florence : 1965 MR: [id number] V: [id number] EXAM DATE: ORDERING PHYSICIAN: ROBBY BENAVIDEZ TECHNOLOGIST: Location: [facility] [place] Patient: Aryan Florence : 1965 Visit/Account:[id number] Date of Sevice: 11/24/2017 HEAD W/O CONTRAST EXAMINATION: CT head/brain without contrast HISTORY: Fall loss of consciousness TECHNIQUE: Contiguous axial images were obtained from the skull base to the vertex without intravenou s contrast. One of the following dose optimization techniques was utilized in the performance of this exam: Autom ated exposure control; adjustment of the mA and/or kV according to the patient's size; or use of an i terative reconstruction technique. Specific details can be referenced in the facility's radiology C T exam operational policy. COMPARISON STUDIES: None FINDINGS: Ventricles/sulci/fissures: Negative Masses/hemorrhage/midline shift: Negative White matter: Negative Feng-white differentiation: Negative Extra-axial spaces: Negative Dural venous sinuses/arterial structures: Negative Skull base/calvarium: Nasal bone fracture Visualized mastoid air cells/paranasal sinuses: Negative IMPRESSION: 1. Negative CT scan of the head for acute intracranial pathology. 2. Nasal bone fracture noted. Report Dictated By: Bubba Cox MD at 11/24/2017 10:05 PM Report E-Signed By: Bubba Cox MD at 11/24/2017 10:09 PM WSN:[id number]
--- NOTE | 2017-11-24 22:44 | RADIOLOGY IMAGING REPORT ---
[facility] PATIENT NAME: Aryan Florence : 1965 MR: [id number] V: [id number] EXAM DATE: ORDERING PHYSICIAN: ROBBY BENAVIDEZ TECHNOLOGIST: Location: [facility] Patient: Aryan Florence : 1965 Visit/Account:[id number] Date of Sevice: 11/24/2017 CT cervical spine without contrast INDICATION: fall. COMPARISON: None. PROCEDURE: Multiplanar noncontrast CT of the cervical spine. One of the following dose optimization techniques was utilized in the performance of this exam: Automated exposure control; adjustment of th e mA and/or kV according to the patient's size; or use of an iterative reconstruction technique. Sp ecific details can be referenced in the facility's radiology CT exam operational policy. FINDINGS: No acute abnormality of cervical vertebral body height and alignment. No cervical spine fracture. T here is no prevertebral soft tissue thickening. C6-7 ACDF. No evidence of failure or loosening. Moderate spondylosis at C5-6 possibly representing junctional disease. Remaining visualized cervical soft tissues are nonacute. The airway is patent. The lung apices are clear. IMPRESSION: No acute osseous abnormality of the cervical spine. Report Dictated By: Bradford Calderon MD at 11/24/2017 10:32 PM Report E-Signed By: Bradford Calderon MD at 11/24/2017 10:41 PM WSN:[id number]
[2017-11-24] MEDS ORDERED: ONDANSETRON 4 MG/2 ML VIAL IVP ONE (23:10)
[2017-11-25] MEDS ORDERED: IOPAMIDOL 76% 75 ML INFUS BTL 75 ML ONE (01:52)
--- NOTE | 2017-11-25 02:49 | RADIOLOGY IMAGING REPORT ---
FACILITY: [facility] PATIENT NAME: Aryan Florence : 1965 MR: [id number] V: [id number] EXAM DATE: ORDERING PHYSICIAN: ROBBY BENAVIDEZ TECHNOLOGIST: Location: [facility] - [place] Patient: Aryan Florence : 1965 Visit/Account:[id number] Date of Sevice: 11/25/2017 Computed tomograpy abdomen and pelvis with IV contrast Indication: Abdominal pain. Weight loss. Comparison: None available. . Technique: Transaxial computed tomography images were obtained through the abdomen and pelvis follo wing the injection of nonionic iodinated intravenous contrast. Reformatted coronal and sagittal image s were also obtained. One of the following dose optimization techniques was utilized in the performance of this exam: Autom ated exposure control; adjustment of the mA and/or kV according to the patient's size; or use of an i terative reconstruction technique. Specific details can be referenced in the facility's radiology C T exam operational policy. Contrast: 75 ml of Isovue-370 IV contrast. Findings: Lower lung bowen: Limited views lower lung field are unremarkable. There is circumferential thickeni ng of the distal esophagus. This is not specific and could reflect esophagitis. Endoscopy could be pe rformed for further assessment to exclude a mucosal abnormality. Liver: There is mild diffuse fatty liver. No focal abnormality is identified. Biliary: Gallbladder appears unremarkable as well as the intra and extra hepatic biliary system. Pancreas: Normal appearance. Spleen: Normal appearance. Adrenal glands: Unremarkable. Kidneys / retroperitoneum: No evidence of nephrolithiasis or hydronephrosis Bowel / peritoneum / mesenteries: There is apparent wall thickening of the descending colon which may reflect underdistention. No surrounding inflammatory stranding is seen. Colitis cannot be completely excluded but is felt to be less likely. Appendix is normal. Small bowel loops are normal in caliber. Lymph node assessment: No pathologic adenopathy identified. Pelvic structures: Bladder is mildly distended. Prostate gland is moderately enlarged. Vessels: Moderately diffuse atherosclerotic calcifications seen throughout a nonaneurysmal abdominal aorta and branches. Infrarenal aorta is mildly ectatic measuring up to 2.1 cm in greatest dimension. Musculoskeletal / Body wall: No compression fractures. Mild hip joint osteoarthritis is seen. IMPRESSION: 1. Mild diffuse fatty liver. 2. Apparent wall and mucosal thickening of the descending colon which may reflect under distention bu t a colitis cannot be excluded. No appreciable surrounding inflammatory changes are seen which makes a left-sided colitis less likely. Correlate clinically. 3. Atherosclerosis. 4. Circumferential thickening of the distal esophagus which can reflect esophagitis. If indicated, co nsider direct visualization for further evaluation and to exclude a mucosal abnormality. 5. Prostatic enlargement Report Dictated By: Mckinley Jane at 11/25/2017 2:32 AM Report E-Signed By: Mckinley Jane at 11/25/2017 2:45 AM WSN:[id number]
[2017-11-25] MEDS ORDERED: PROMETHAZINE 25 MG/ML 1 ML AMP IVP ONE (04:00)
[2017-11-25 06:00] VITALS: BP 167/105
--- NOTE | 2017-11-27 14:35 | Transitional Care Management ---
Assessment Visit Type: Telephone Visit TCM Discharge Criteria Transitional Care Comment: 11/27 I spoke with his son, he was sleeping and he did not want to wake him up. I will call again tomorrow. ELVER GATES Nov 27, 2017 14:35
== END 2017-11-25 08:29 | disposition home or self-care (01) ==
LOC: ER 20:53
DX: R55 Syncope and collapse (principal); S01.21XA Laceration without foreign body of nose, initial encounter; S02.2XXA Fracture of nasal bones, initial encounter for closed fracture; E86.0 Dehydration; Z87.19 Personal history of other diseases of the digestive system; R94.31 Abnormal electrocardiogram [ECG] [EKG]
CPT/HCPCS: 12011; 70450; 72125; 74177; 81001; 82150; 83605; 83690; 84484; 85025; 93005; 96361; 96374; 96375; 99285; G0480; J2405; J2550; Q9967; 80320; 82040; 82247; 82310; 82374; 82435; 82565; 82947; 84075; 84132; 84155; 84295; 84450; 84460; 84520

== ENCOUNTER 2017-11-28 14:16 | Outpatient (RCR) | payer MEDICAID ==
[~2017-11-28 14:16] MED LIST changes: -ACET325C PO; -ASPI81TA86 PO; -DOCU-202 PO; -GLEC1TAB PO; -LEVI SUBQ; -LISI20TA29 PO; -PANT40TA65 PO; -PREG50CA48 PO; -PROC10TA4 PO; -VENL75CA58 PO
--- NOTE | 2017-11-28 15:33 | Transitional Care Management ---
Assessment Visit Type: Telephone Visit Spoke with: Aryan GI: Nutrition: WNL Except GI Comment: 11/28 He has not eaten due to N/V. Constipation?: No : WNL Musculoskeletal, Exercise: WNL Except Musculoskeletal, Excercise Com: He has not gotten out of bed since discharge, he has been using a bedpan. Mobility/Falls: WNL Except Mobility Comment: 11/28 Bedbound. Feeling of Well Being: WNL Except Feeling of Well Being Comment: 11/28 I need help, my family can't do this, I can't do this. Socialization: WNL Except Socialization Comment: 11/28 Lives with his son, but is not the best place for him. Scheduled Follow-Up with [facility]: Yes (11/28 Appt with Hanh GALAVIZ today.) TCM Discharge Criteria Transitional Care Comment: 11/27 I spoke with his son, he was sleeping and he did not want to wake him up. I will call again tomorrow. 11/28 He is not doing well. He has not been out of bed since being in the ER on 11/24, and has not been able to eat due to N/V. He says he needs help. He moved here to live with his son because he could not care for himself anymore, but it is not working out very well. His son is not able to help very much, and gets upset at times. ELVER GATES Nov 28, 2017 15:33
[2017-11-29] MEDS ORDERED: LISI20TA29 PO (19:26)
[2017-11-29] MEDS ORDERED: VENL75CA58 PO (19:26)
[2017-11-29] MEDS ORDERED: LEVI SUBQ (19:26)
[2017-11-29] MEDS ORDERED: PANT40TA65 PO (19:26)
[2017-11-29] MEDS ORDERED: INSU100C14 SQ (19:26)
[2017-11-29] MEDS ORDERED: PREG50CA48 PO (19:26)
[2017-11-29] MEDS ORDERED: ASPI81TA86 PO (19:26)
[2017-11-29] MEDS ORDERED: GLEC1TAB PO (19:26)
[2017-11-29] MEDS ORDERED: CLON-327 PO (19:26)
[2017-11-29] MEDS ORDERED: POLY17PO25 PO (19:26)
[2017-11-29] MEDS ORDERED: ACET325C PO (19:26)
[2017-11-29] MEDS ORDERED: PROC10TA4 PO (19:26)
[2017-11-29] MEDS ORDERED: DOCU-416 PO (19:26)
[2017-12-03] MEDS ORDERED: PANT40TA65 PO (10:22)
[2017-12-03] MEDS ORDERED: DOCU-202 PO (10:22)
--- NOTE | 2017-12-04 11:06 | Transitional Care Management ---
Assessment Visit Type: Telephone Visit (12/04 Shayan) Cardiac Comment: 12/04 denies CP but stated that he was slightly dizzy when getting up earlier. Enc him to move slowly from lying to sitting to standing befor just getting up and walking. He is walking w walker and feels safer Respiratory: WNL Respiratory Comment: denies SOB GI: Nutrition: WNL Except GI Comment: 11/28 He has not eaten due to N/V. 12/04 Eating some-but not really hungery. Enc him to eat as a diabetic he needs to eat regularly and monitor glucoses. He needs to eat protien. Discussed the use of supplements ie Ensure or Boost. Constipation?: No (12/05 denies at this time) : WNL Musculoskeletal, Exercise: WNL Except Musculoskeletal, Excercise Com: He has not gotten out of bed since discharge, he has been using a bedpan 12/04 Shayan was in bed when I called. Stated "I'm just tired" I talked with him about any hobbies or reading. He states he does not do anything-watches TV some" Mobility/Falls: WNL Except Mobility Comment: 11/28 Bedbound. 12/04 I enc him to get up and move around some. He has a walker and should be able to get around some. He needes the activity for his bowels and to avoid skin breakdown. His answers anre "yeah, yeah" [facility] is to visit today and start some PT. Integumentary: WNL Except Integumentary Comment: 12/04 Enc him to monitor his cellulitis on L foot and show to HH so they can watch this area when ambulating. Feeling of Well Being: WNL Except Feeling of Well Being Comment: 11/28 I need help, my family can't do this, I can't do this. 12/04 The son might check [employer] for him. I enc him to take [employer] or [employer] and get out and do some activities. Socialization: WNL Except Socialization Comment: 11/28 Lives with his son, but is not the best place for him. 12/04 states "Not really happy living with son and family, don't know what else to do" Scheduled Follow-Up with [facility]: Yes (11/28 Appt with Hanh GALAVIZ today.) Community Resources/HHC: 12/04 [facility] TCM Discharge Criteria Medication Knowledge: 12/04 went over meds. Not sure if he is taking as per instructions. Disease Management/Concern/Wha: 12/04 Went over the care of his L foot. Red flags of hyper/hypo diabetic and constipation. Transitional Care Comment: 11/27 I spoke with his son, he was sleeping and he did not want to wake him up. I will call again tomorrow. 11/28 He is not doing well. He has not been out of bed since being in the ER on 11/24, and has not been able to eat due to N/V. He says he needs help. He moved here to live with his son because he could not care for himself anymore, but it is not working out very well. His son is not able to help very much, and gets upset at times. 12/04 Shayan was still in bed when I called at 1030. States he has not eaten anything yet. Enc him to get up move around some and get him some food. or ask his son to help him. I will do a home visit tomorrow at 1030. JUAN CLEARY Dec 04, 2017 11:06
--- NOTE | 2017-12-05 12:59 | Transitional Care Management ---
Assessment Visit Type: Home Visit (12/05 visited with Shayan and his son.) Cardiac Comment: 12/04 denies CP but stated that he was slightly dizzy when getting up earlier. Enc him to move slowly from lying to sitting to standing before just getting up and walking. He is walking w walker and feels safer 12/05 Shayan was sleeping when I arrived at the home at 1100. Denies CP. Hasn't gotten up yet to see about getting dizzy. Denies CP Respiratory: WNL Respiratory Comment: denies SOB GI: Nutrition: WNL Except GI Comment: 11/28 He has not eaten due to N/V. 12/04 Eating some-but not really hungery. Enc him to eat as a diabetic he needs to eat regularly and monitor glucoses. He needs to eat protien. Discussed the use of supplements ie Ensure or Boost. 12/05Statecristhian hasn't eaten yet today but isn't hungery. Once again enc him to eat as he needs some food with his diabetes. Constipation?: No (12/05 denies at this time) : WNL Comment: 12/05 States he hasn't been constipated and has been taking colce bid. Musculoskeletal, Exercise: WNL Except Musculoskeletal, Excercise Com: He has not gotten out of bed since discharge, he has been using a bedpan 12/04 Shayan was in bed when I called. Stated "I'm just tired" I talked with him about any hobbies or reading. He states he does not do anything-watches TV some" 12/05 States hasn't been up much "Just to tired" Mobility/Falls: WNL Except Mobility Comment: 11/28 Bedbound. 12/04 I enc him to get up and move around some. He has a walker and should be able to get around some. He needes the activity for his bowels and to avoid skin breakdown. His answers anre "yeah, yeah" [facility] is to visit today and start some PT. Integumentary: WNL Except Integumentary Comment: 12/04 Enc him to monitor his cellulitis on L foot and show to HH so they can watch this area when ambulating. 12/05 Skin is very dry-enc him to put on some lotion. Needs Toe nails clipped and a good pedicure. Suggested the [facility] [facility]. Feeling of Well Being: WNL Except Feeling of Well Being Comment: 11/28 I need help, my family can't do this, I can't do this. 12/04 The son might check [employer] for him. I enc him to take [employer] or [employer] and get out and do some activities. 12/05 He is not happy in son's anabel! Before his son came to join us in the assessment he was voicing how he did not feel welcome, Family doesen't have time for him at all bothe son and daughterin law work and they have three very small childern. I can't get around in the hose with my walker as the house is a total mess." son then joined us and then i could not help him with any other comments. Shayan seems very upset and depressed about living situation Socialization: WNL Except Socialization Comment: 11/28 Lives with his son, but is not the best place for him. 12/04 states "Not really happy living with son and family, don't know what else to do" 12/05 stays in bedroom with door closed. Scheduled Follow-Up with [facility]: Yes (11/28 Appt with Hanh Turner PA today. 12/05 Has an appt with Hanh Turner today at 1330.) Community Resources/HHC: 12/04 [facility] TCM Discharge Criteria Medication Knowledge: 12/04 went over meds. Not sure if he is taking as per instructions. Disease Management/Concern/Wha: 12/04 Went over the care of his L foot. Red flags of hyper/hypo diabetic and constipation. Transitional Care Comment: 11/27 I spoke with his son, he was sleeping and he did not want to wake him up. I will call again tomorrow. 11/28 He is not doing well. He has not been out of bed since being in the ER on 11/24, and has not been able to eat due to N/V. He says he needs help. He moved here to live with his son because he could not care for himself anymore, but it is not working out very well. His son is not able to help very much, and gets upset at times. 12/04 Shayan was still in bed when I called at 1030. States he has not eaten anything yet. Enc him to get up move around some and get him some food. or ask his son to help him. I will do a home visit tomorrow at 1030. 1100 Shayan was in bed and sleeping when I arrived. He appears to be very depressed and lethargic. He stays in room and I noticed there was a urnial at bedside (full) and asked him if he didn't go to [place] he stated not all the time. I don't like to try to go through the house unless I have to." Hedrank a bottle of sugar free cranberry juice whil I was there. Appers interestd in using [employer] or [employer] bus to get out and do things for some kind of entrainment or activity. He has an appt with Dr Turner today at 1330 and I enc him to ask her about resuming his Gabepintin for his peripherial neuropathy which he states "Hurts alot". Copies to: HANH TURNER ; JUAN CLEARY Dec 05, 2017 12:59
--- NOTE | 2017-12-12 10:49 | Transitional Care Management ---
Assessment Cardiac Comment: 12/04 denies CP but stated that he was slightly dizzy when getting up earlier. Enc him to move slowly from lying to sitting to standing before just getting up and walking. He is walking w walker and feels safer 12/05 Shayan was sleeping when I arrived at the home at 1100. Denies CP. Hasn't gotten up yet to see about getting dizzy. Denies CP Respiratory: WNL Respiratory Comment: denies SOB GI: Nutrition: WNL Except GI Comment: 11/28 He has not eaten due to N/V. 12/04 Eating some-but not really hungery. Enc him to eat as a diabetic he needs to eat regularly and monitor glucoses. He needs to eat protien. Discussed the use of supplements ie Ensure or Boost. 12/05States hasn't eaten yet today but isn't hungery. Once again enc him to eat as he needs some food with his diabetes. Constipation?: No (12/05 denies at this time) : WNL Comment: 12/05 States he hasn't been constipated and has been taking colce bid. Musculoskeletal, Exercise: WNL Except Musculoskeletal, Excercise Com: He has not gotten out of bed since discharge, he has been using a bedpan 12/04 Shayan was in bed when I called. Stated "I'm just tired" I talked with him about any hobbies or reading. He states he does not do anything-watches TV some" 12/05 States hasn't been up much "Just to tired" Mobility/Falls: WNL Except Mobility Comment: 11/28 Bedbound. 12/04 I enc him to get up and move around some. He has a walker and should be able to get around some. He needes the activity for his bowels and to avoid skin breakdown. His answers anre "yeah, yeah" [facility] is to visit today and start some PT. Integumentary: WNL Except Integumentary Comment: 12/04 Enc him to monitor his cellulitis on L foot and show to HH so they can watch this area when ambulating. 12/05 Skin is very dry-enc him to put on some lotion. Needs Toe nails clipped and a good pedicure. Suggested the [facility]. Feeling of Well Being: WNL Except Feeling of Well Being Comment: 11/28 I need help, my family can't do this, I can't do this. 12/04 The son might check [employer] for him. I enc him to take [employer] or [facility] and get out and do some activities. 12/05 He is not happy in son's anabel! Before his son came to join us in the assessment he was voicing how he did not feel welcome, Family doesen't have time for him at all bothe son and daughterin law work and they have three very small childern. I can't get around in the hose with my walker as the house is a total mess." son then joined us and then i could not help him with any other comments. Shayan seems very upset and depressed about living situation Socialization: WNL Except Socialization Comment: 11/28 Lives with his son, but is not the best place for him. 12/04 states "Not really happy living with son and family, don't know what else to do" 12/05 stays in bedroom with door closed. Scheduled Follow-Up with [facility]: Yes (11/28 Appt with Hanh Turner PA today. 12/05 Has an appt with Hanh Turner today at 1330.) Community Resources/HHC: 12/04 [facility] TCM Discharge Criteria Medication Knowledge: 12/04 went over meds. Not sure if he is taking as per instructions. Disease Management/Concern/Wha: 12/04 Went over the care of his L foot. Red flags of hyper/hypo diabetic and constipation. Transitional Care Comment: 11/27 I spoke with his son, he was sleeping and he did not want to wake him up. I will call again tomorrow. 11/28 He is not doing well. He has not been out of bed since being in the ER on 11/24, and has not been able to eat due to N/V. He says he needs help. He moved here to live with his son because he could not care for himself anymore, but it is not working out very well. His son is not able to help very much, and gets upset at times. 12/04 Shayan was still in bed when I called at 1030. States he has not eaten anything yet. Enc him to get up move around some and get him some food. or ask his son to help him. I will do a home visit tomorrow at 1030. 1100 Shayan was in bed and sleeping when I arrived. He appears to be very depressed and lethargic. He stays in room and I noticed there was a urnial at bedside (full) and asked him if he didn't go to [place] he stated not all the time. I don't like to try to go through the house unless I have to." Hedrank a bottle of sugar free cranberry juice whil I was there. Appers interestd in using [facility] or [employer] bus to get out and do things for some kind of entrainment or activity. He has an appt with Dr Turner today at 1330 and I enc him to ask her about resuming his Gabepintin for his peripherial neuropathy which he states "Hurts alot". 12/12 Unable to contact. unable to leave a message. JUAN CLEARY Dec 12, 2017 10:49
--- NOTE | 2017-12-14 13:50 | Transitional Care Management ---
Assessment Cardiac Comment: 12/04 denies CP but stated that he was slightly dizzy when getting up earlier. Enc him to move slowly from lying to sitting to standing before just getting up and walking. He is walking w walker and feels safer 12/05 Shayan was sleeping when I arrived at the home at 1100. Denies CP. Hasn't gotten up yet to see about getting dizzy. Denies CP Respiratory: WNL Respiratory Comment: denies SOB GI: Nutrition: WNL Except GI Comment: 11/28 He has not eaten due to N/V. 12/04 Eating some-but not really hungery. Enc him to eat as a diabetic he needs to eat regularly and monitor glucoses. He needs to eat protien. Discussed the use of supplements ie Ensure or Boost. 12/05States hasn't eaten yet today but isn't hungery. Once again enc him to eat as he needs some food with his diabetes. Constipation?: No (12/05 denies at this time) : WNL Comment: 12/05 States he hasn't been constipated and has been taking colce bid. Musculoskeletal, Exercise: WNL Except Musculoskeletal, Excercise Com: He has not gotten out of bed since discharge, he has been using a bedpan 12/04 Shayan was in bed when I called. Stated "I'm just tired" I talked with him about any hobbies or reading. He states he does not do anything-watches TV some" 12/05 States hasn't been up much "Just to tired" Mobility/Falls: WNL Except Mobility Comment: 11/28 Bedbound. 12/04 I enc him to get up and move around some. He has a walker and should be able to get around some. He needes the activity for his bowels and to avoid skin breakdown. His answers anre "yeah, yeah" [facility] is to visit today and start some PT. Integumentary: WNL Except Integumentary Comment: 12/04 Enc him to monitor his cellulitis on L foot and show to HH so they can watch this area when ambulating. 12/05 Skin is very dry-enc him to put on some lotion. Needs Toe nails clipped and a good pedicure. Suggested the [facility]. Feeling of Well Being: WNL Except Feeling of Well Being Comment: 11/28 I need help, my family can't do this, I can't do this. 12/04 The son might check [employer] for him. I enc him to take [employer] or [employer] and get out and do some activities. 12/05 He is not happy in son's anabel! Before his son came to join us in the assessment he was voicing how he did not feel welcome, Family doesen't have time for him at all bothe son and daughterin law work and they have three very small childern. I can't get around in the hose with my walker as the house is a total mess." son then joined us and then i could not help him with any other comments. Shayan seems very upset and depressed about living situation Socialization: WNL Except Socialization Comment: 11/28 Lives with his son, but is not the best place for him. 12/04 states "Not really happy living with son and family, don't know what else to do" 12/05 stays in bedroom with door closed. Scheduled Follow-Up with [facility]: Yes (11/28 Appt with Hanh Turner PA today. 12/05 Has an appt with Hanh Turner today at 1330.) Community Resources/HHC: 12/04 [facility] TCM Discharge Criteria Medication Knowledge: 12/04 went over meds. Not sure if he is taking as per instructions. Disease Management/Concern/Wha: 12/04 Went over the care of his L foot. Red flags of hyper/hypo diabetic and constipation. Transitional Care Comment: 11/27 I spoke with his son, he was sleeping and he did not want to wake him up. I will call again tomorrow. 11/28 He is not doing well. He has not been out of bed since being in the ER on 11/24, and has not been able to eat due to N/V. He says he needs help. He moved here to live with his son because he could not care for himself anymore, but it is not working out very well. His son is not able to help very much, and gets upset at times. 12/04 Shayan was still in bed when I called at 1030. States he has not eaten anything yet. Enc him to get up move around some and get him some food. or ask his son to help him. I will do a home visit tomorrow at 1030. 1100 Shayan was in bed and sleeping when I arrived. He appears to be very depressed and lethargic. He stays in room and I noticed there was a urnial at bedside (full) and asked him if he didn't go to [place] he stated not all the time. I don't like to try to go through the house unless I have to." Hedrank a bottle of sugar free cranberry juice whil I was there. Appers interestd in using [employer] or [employer] bus to get out and do things for some kind of entrainment or activity. He has an appt with Dr Turner today at 1330 and I enc him to ask her about resuming his Gabepintin for his peripherial neuropathy which he states "Hurts alot". 12/12 Unable to contact. unable to leave a message. 12/13 He contacted social work to let them know he was on his way to [facility] to live with his daughter, and would follow up with a provider there. ELVER GATES Dec 14, 2017 13:50
== END 2017-12-14 14:57 | disposition home or self-care (01) ==
LOC: TCM 14:16
PROVIDERS: ATTEND Nurse Practitioner
DX: Z02.9 Encounter for administrative examinations, unspecified (principal)

== ENCOUNTER → 2017-11-28 | Outpatient (CLI) | payer MEDICAID ==
[~2017-11-28] MED LIST changes: +ACET325C PO; +AMLO-113 PO; -AMLO-99 PO; +ASPI81TA86 PO; +DOCU-202 PO; +GLEC1TAB PO; +LEVI SUBQ; +LISI20TA29 PO; +PANT40TA65 PO; +PREG50CA48 PO; +PROC10TA4 PO; +VENL75CA58 PO
[2017-11-29 08:33] VITALS: BMI 16.5
== END ==
LOC: AMB 16:20
PROVIDERS: ATTEND Nurse Practitioner
DX: R55 Syncope and collapse (principal); R53.1 Weakness
CPT/HCPCS: A0425; A0427